=== PATIENT | female | born 1955 | race Two or more races ===

== ENCOUNTER 2021-03-06 16:03 | Inpatient (IN) | payer OTHER ==
[~2021-03-06] VITALS: Ht 157.5 cm; Wt 49.9 kg
--- NOTE | 2021-03-06 16:05 | NUR ---
at bedside for assessment
--- NOTE | 2021-03-06 16:10 | NUR ---
Art from crisis team called for patient evaluation, Art states he will come at soonest convenience
--- NOTE | 2021-03-06 16:29 | NUR ---
room given by Santos from [facility]
[2021-03-06] MEDS ORDERED: BISA-79 PO (16:37)
[2021-03-06] MEDS ORDERED: AMLO10TA59 PO (16:37)
[2021-03-06] MEDS ORDERED: HALO5SYR3 IVP (16:37)
[2021-03-06] MEDS ORDERED: HEPA500034 SQ (16:37)
[2021-03-06] MEDS ORDERED: DEXTROSE 40% PO (16:37)
[2021-03-06] MEDS ORDERED: CETI-90 PO (16:37)
[2021-03-06] MEDS ORDERED: LOSA1TAB36 PO (16:37)
[2021-03-06] MEDS ORDERED: DEXT50VI3 IV (16:37)
[2021-03-06] MEDS ORDERED: ACET-2154 PO (16:37)
[2021-03-06] MEDS ORDERED: ASPI81TA31 PO (16:37)
[2021-03-06] MEDS ORDERED: LEVO200C2 PO (16:53)
[2021-03-06] MEDS ORDERED: MONT10TA22 PO (16:53)
[2021-03-06] MEDS ORDERED: LACT1CAP61 PO (16:53)
[2021-03-06] MEDS ORDERED: METF-440 PO (16:53)
[2021-03-06] MEDS ORDERED: INSU100V42 SQ (16:53)
[2021-03-06] MEDS ORDERED: HYDR20VI6 IV (16:53)
[2021-03-06] MEDS ORDERED: NALO0.4D4 IV (16:57)
[2021-03-06] MEDS ORDERED: NITR0.4T48 SL (16:57)
[2021-03-06] MEDS ORDERED: ONDA2VIA IV (16:57)
[2021-03-06] MEDS ORDERED: SUCR1TAB PO (16:57)
[2021-03-06] MEDS ORDERED: PANT40TA49 PO (16:57)
[2021-03-06] MEDS ORDERED: QUET50TA PO (16:57)
--- NOTE | 2021-03-06 17:26 | NUR ---
Leighann obando crisis team noted at bedside for assessment
--- NOTE | 2021-03-06 18:04 | NUR ---
New hold placed by crisis member
--- NOTE | 2021-03-06 19:00 | NUR ---
Patient transferred to MHU, report given to Ema BLANDON, patient transferred via wheelchair to, MD Benavides and OBED Corley are admitting doctors
--- NOTE | 2021-03-06 19:00 | NUR ---
ADMITTED PATIENT IN MHU UNDER THE CARE OF DR. TRIPP, & DR. LÓPEZ, PATIENT ALERT X3, DISHEVELED, NO UPPER DENTURES, PATIENT DENIES/AVOIDING THE REASON WHY SHE WAS ADMITTED IN [facility], AND [facility]. PATIENT DENIES BEING OPIODS DEPENDENT, AND KEEPING GOING BACK TO WHAT THE PSYCH MD SAID, THAT SHE'S STAYING HERE ONLY FOR 3 DAYS AND SHE'S GOING BACK HOME. PATIENT COMPLAIN OF SCIATICA PAIN ON R SIDE BACK TOWARD THE BACK R THIGH, WILL MEDICATE ORDERED. PATIENT CALM, COOPERATIVE WILL CONT TO MONITOR.
[2021-03-06] MEDS ORDERED: MAG HYDROX/AL HYDROX/SIMETH 30 ML LIQUID UDC PO PRN (19:15)
[2021-03-06] MEDS ORDERED: MAGNESIUM HYDROXIDE 30 ML LIQUID UDC PO PRN (19:15)
[2021-03-06] MEDS ORDERED: BLOOD SUGAR DIAGNOSTIC 1 EACH STRIP VI ONE (20:00)
[2021-03-06 20:20] VITALS: BP 144/88
[2021-03-06] MEDS: ACETAMINOPHEN 325 MG TABLET PO PRN (21:05)
--- NOTE | 2021-03-06 22:30 | NUR ---
PLACE A CALL TO SON CARMITA CHUNG, VOICEMAIL SENIOR RISK ANALYST THE CALL BUT IT'S NAME OR WRONG NUMBER. ANGULAR JS DEVELOPER UNABLE TO CONTACT FAMILY AT THIS TIME, WILL CALL IN AM.
[2021-03-07] MEDS ORDERED: CETIRIZINE HCL 10 MG TABLET PO SCH
[2021-03-07] MEDS ORDERED: BISACODYL 5 MG TABLET.DR PO PRN
[2021-03-07] MEDS ORDERED: INSULIN ASPART 1000 UNITS/10 ML VIAL(NOVOLOG) SQ SCH
[2021-03-07] MEDS ORDERED: NITROGLYCERIN 0.4 MG/TAB BOTTLE SL PRN
--- NOTE | 2021-03-07 00:46 | NUR ---
TYLENOL 650MG ORDER 0000 NOT GIVEN, PATIENT HAD TYLENOL AT 2105 PER REQUEST FOR PAIN.
[2021-03-07] MEDS: ACETAMINOPHEN 325 MG TABLET PO SCH ×2 (05:56)
[2021-03-07 07:13] LABS: BILIRUBIN,TOTAL 0.2 mg/dL (0.2-1.0); POTASSIUM 4.4 mmol/L (3.5-5.1); TOTAL PROTEIN, SERUM 6.8 g/dL (6.4-8.2)
[2021-03-07 07:30] VITALS: BP 138/86
[2021-03-07] MEDS ORDERED: hydrALAZINE HCL 20 MG/1 ML VIAL IV PRN ×2 (07:30)
[2021-03-07] MEDS: LOSARTAN POTASSIUM 50 MG TABLET PO SCH (08:16)
[2021-03-07] MEDS: SUCRALFATE 1 G TABLET PO SCH ×4 (08:16→20:52)
[2021-03-07] MEDS: HYDROCHLOROTHIAZIDE 12.5 MG CAPSULE PO SCH (08:16)
[2021-03-07] MEDS: ACIDOPHILUS/BULGARICUS CHEW TAB PO SCH ×3 (08:17→16:48)
[2021-03-07] MEDS: METFORMIN HCL 500 MG TABLET PO SCH ×3 (08:17→17:20)
[2021-03-07] MEDS: AMLODIPINE 10 MG TABLET PO SCH (08:17)
[2021-03-07] MEDS: LEVOTHYROXINE SODIUM 200 MCG TABLET PO SCH (08:18)
[2021-03-07] MEDS: ASPIRIN 81 MG TAB.CHEW PO SCH (08:18)
[2021-03-07] MEDS: PANTOPRAZOLE SODIUM 40 MG TABLET.DR PO SCH (08:18)
--- NOTE | 2021-03-07 08:57 | NUR ---
Firearms Report: Pattern Weaver completed and submitted a [employer] firearms report for 5150 grave disability certification. A copy of report has been placed in patient chart.
[2021-03-07] MEDS ORDERED: CULTURELLE CAPSULE PO SCH (09:00)
[2021-03-07] MEDS ORDERED: Medication Not On Formulary EA (Losartan/Hydrochlorothiazide (Losartan-Hctz 50-12.5 Mg T PO SCH (09:00)
[2021-03-07] MEDS ORDERED: MONTELUKAST SODIUM 10 MG TABLET PO SCH (09:00)
--- NOTE | 2021-03-07 09:44 | NUR ---
Initial Discharge Plan: Patient lives at home with son Ten ([phone]) located at [address] [place] [address] ([phone]). Patient would want to return back home upon discharge. This SW contacted patient's son Ten ([phone]) to discuss treatment and discharge plan. This SW unable to leave a voicemail due to voicemail being full. This SW will work with the family, patient, and treatment team to help coordinate proper discharge.
--- NOTE | 2021-03-07 09:44 | NUR ---
SW Family Contact: This SW contacted patient's son Ten ([phone]) to discuss treatment and discharge plan. This check writer salesperson unable to leave a voicemail due to mailbox being full.
--- NOTE | 2021-03-07 09:45 | NUR ---
Social Work Note/Substance Abuse Intervention: Patient was provided with a brief substance abuse intervention and referred to [facility] ([phone]), [facility] ([phone]), and [facility] ([phone]) for opioid abuse.
--- NOTE | 2021-03-07 10:09 | NUR ---
SW Family Contact: This SW spoke with patient's son Ten ([phone]) and discussed treatment plan. Son stated that pt can return back home. He stated once pt is stable he will pick her up.
--- NOTE | 2021-03-07 10:48 | NUR ---
UR Note: Auth: [id number]. Branch Service Specialist: Trista Shelton ([phone]) extension:[phone], ). Approval Days: 5 with clinical review due Wednesday03/10/2021.
--- NOTE | 2021-03-07 11:28 | NUR ---
UR Note: Auth: [id number]. Scorer Helper: Trista Shelton ([phone]) extension:[phone], ). This SW faxed patient's clinicals.
[2021-03-07] MEDS ORDERED: DEXTROSE 50% 50 ML DISP.SYRIN IV PRN (13:15)
[2021-03-07] MEDS ORDERED: INSULIN REGULAR, HUMAN 300 UNIT/3 ML VIAL SQ PRN (13:15)
[2021-03-07] MEDS ORDERED: CETIRIZINE HCL 10 MG TABLET PO PRN (13:15)
[2021-03-07] MEDS: LOPERAMIDE HCL 2 MG CAPSULE PO PRN (15:16)
[2021-03-07] MEDS: ARIPIPRAZOLE 2 MG TABLET PO SCH (15:16)
[2021-03-07] MEDS: ESCITALOPRAM OXALATE 10 MG TABLET PO SCH (15:16)
[2021-03-07] MEDS: ACETAMINOPHEN 325 MG TABLET PO PRN (15:23)
[2021-03-07] MEDS: CLONAZEPAM 0.5 MG TABLET PO PRN (16:40)
[2021-03-07] MEDS: BLOOD SUGAR DIAGNOSTIC 1 EACH STRIP VI SCH ×2 (16:41→20:56)
[2021-03-07] MEDS: MONTELUKAST SODIUM 10 MG TABLET PO SCH (17:20)
[2021-03-07 17:49] VITALS: BP 145/75
[2021-03-07 20:20] VITALS: BP 143/71
[2021-03-07] MEDS: TEMAZEPAM 7.5 MG CAPSULE PO PRN (21:09)
--- NOTE | 2021-03-08 05:30 | NUR ---
PATIENT ALERT STAYED IN HER ROOM, NO COMPLAIN OF PAIN. PATIENT CALM AND COOPERATIVE WITH CARE AT THIS TIME, PATIENT TOOK SLEEPING PILL FOR INSOMNIA LAST NIGHT WITH EFFECTIVE RESULT. CONT TO MONITOR BLOOD SUGAR.
[2021-03-08] MEDS: LEVOTHYROXINE SODIUM 200 MCG TABLET PO SCH (06:00)
[2021-03-08] MEDS: SUCRALFATE 1 G TABLET PO SCH ×4 (06:00→19:49)
[2021-03-08] MEDS: BLOOD SUGAR DIAGNOSTIC 1 EACH STRIP VI SCH ×4 (06:01→19:54)
[2021-03-08] MEDS: ASPIRIN 81 MG TAB.CHEW PO SCH (08:04)
[2021-03-08] MEDS: ACIDOPHILUS/BULGARICUS CHEW TAB PO SCH ×4 (08:04→19:49)
[2021-03-08] MEDS: AMLODIPINE 10 MG TABLET PO SCH (08:05)
[2021-03-08] MEDS: ARIPIPRAZOLE 2 MG TABLET PO SCH (08:05)
[2021-03-08] MEDS: ESCITALOPRAM OXALATE 10 MG TABLET PO SCH (08:06)
[2021-03-08] MEDS: HYDROCHLOROTHIAZIDE 12.5 MG CAPSULE PO SCH (08:07)
[2021-03-08] MEDS: METFORMIN HCL 500 MG TABLET PO SCH ×3 (08:07→17:32)
[2021-03-08] MEDS: LOSARTAN POTASSIUM 50 MG TABLET PO SCH (08:07)
[2021-03-08] MEDS: PANTOPRAZOLE SODIUM 40 MG TABLET.DR PO SCH (08:07)
[2021-03-08] MEDS: LOPERAMIDE HCL 2 MG CAPSULE PO PRN (08:14)
[2021-03-08 08:22] VITALS: BP 116/79
[2021-03-08] MEDS: ACETAMINOPHEN 325 MG TABLET PO PRN ×2 (11:48→18:18)
[2021-03-08 17:11] VITALS: BP 147/74
[2021-03-08] MEDS: MONTELUKAST SODIUM 10 MG TABLET PO SCH (17:32)
[2021-03-08] MEDS: CLONAZEPAM 0.5 MG TABLET PO PRN (18:19)
[2021-03-08] MEDS: TEMAZEPAM 7.5 MG CAPSULE PO PRN (21:26)
[2021-03-08 21:53] VITALS: BP 132/66
[2021-03-09] MEDS: SUCRALFATE 1 G TABLET PO SCH ×4 (05:56→20:44)
[2021-03-09] MEDS: LEVOTHYROXINE SODIUM 200 MCG TABLET PO SCH (05:56)
[2021-03-09] MEDS: BLOOD SUGAR DIAGNOSTIC 1 EACH STRIP VI SCH ×2 (06:32→11:58)
[2021-03-09 07:30] VITALS: BP 129/81
[2021-03-09] MEDS: ACIDOPHILUS/BULGARICUS CHEW TAB PO SCH ×2 (08:26→20:44)
[2021-03-09] MEDS: HYDROCHLOROTHIAZIDE 12.5 MG CAPSULE PO SCH (08:26)
[2021-03-09] MEDS: ASPIRIN 81 MG TAB.CHEW PO SCH (08:26)
[2021-03-09] MEDS: ESCITALOPRAM OXALATE 10 MG TABLET PO SCH (08:27)
[2021-03-09] MEDS: METFORMIN HCL 500 MG TABLET PO SCH ×3 (08:27→17:43)
[2021-03-09] MEDS: LOSARTAN POTASSIUM 50 MG TABLET PO SCH (08:27)
[2021-03-09] MEDS: AMLODIPINE 10 MG TABLET PO SCH (08:27)
[2021-03-09] MEDS: PANTOPRAZOLE SODIUM 40 MG TABLET.DR PO SCH (08:28)
[2021-03-09] MEDS: ARIPIPRAZOLE 2 MG TABLET PO SCH (08:28)
[2021-03-09] MEDS: LOPERAMIDE HCL 2 MG CAPSULE PO PRN (11:58)
[2021-03-09] MEDS: ACETAMINOPHEN 325 MG TABLET PO PRN ×2 (11:59→20:45)
--- NOTE | 2021-03-09 15:00 | NUR ---
Gps/Literary Agent- Blood sugar accu -check decreased to q am. ac Called Norah Montesinos DOUBLE REAMER OPERATOR, reviewed blood sugars , order receive, patient was informed. .
[2021-03-09 16:00] VITALS: BP 111/71
[2021-03-09] MEDS: MONTELUKAST SODIUM 10 MG TABLET PO SCH (17:44)
[2021-03-09 20:00] VITALS: BP 107/64
[2021-03-09] MEDS: TEMAZEPAM 7.5 MG CAPSULE PO PRN (22:29)
[2021-03-10] MEDS: LEVOTHYROXINE SODIUM 200 MCG TABLET PO SCH (06:30)
[2021-03-10] MEDS: BLOOD SUGAR DIAGNOSTIC 1 EACH STRIP VI SCH (06:30)
[2021-03-10] MEDS: SUCRALFATE 1 G TABLET PO SCH ×4 (06:30→20:31)
[2021-03-10] MEDS: ACETAMINOPHEN 325 MG TABLET PO PRN ×2 (06:30→12:57)
--- NOTE | 2021-03-10 06:33 | NUR ---
Patient slept 7.00 hours last night. Up early this am for a shower . Patient denies SI and made a verbal contract with this technical publications writer for safety. Continuing to make frequent round and monitor the patient closely.
[2021-03-10 07:30] VITALS: BP 97/66
[2021-03-10] MEDS: ESCITALOPRAM OXALATE 10 MG TABLET PO SCH (09:00)
[2021-03-10] MEDS: AMLODIPINE 10 MG TABLET PO SCH (09:00)
[2021-03-10] MEDS: ARIPIPRAZOLE 2 MG TABLET PO SCH (09:00)
[2021-03-10] MEDS: PANTOPRAZOLE SODIUM 40 MG TABLET.DR PO SCH (09:00)
[2021-03-10] MEDS: ASPIRIN 81 MG TAB.CHEW PO SCH (09:00)
[2021-03-10] MEDS: LOSARTAN POTASSIUM 50 MG TABLET PO SCH (09:00)
[2021-03-10] MEDS: METFORMIN HCL 500 MG TABLET PO SCH ×3 (09:02→17:21)
[2021-03-10] MEDS: HYDROCHLOROTHIAZIDE 12.5 MG CAPSULE PO SCH (09:03)
[2021-03-10] MEDS: ACIDOPHILUS/BULGARICUS CHEW TAB PO SCH ×2 (09:03→20:31)
--- NOTE | 2021-03-10 09:59 | NUR ---
UR Note: Auth: [id number]. Relocation Coordinator: Trista Shelton ([phone]) extension:[phone], ). This SW faxed patient's clinicals.
--- NOTE | 2021-03-10 14:45 | NUR ---
SW Coordination of Care: This SW attempted to contact patient's primary doctor office located at [address] [place] [address]; ([phone]) for doctor Segundo office to coordinate appointment, however, no answer and this SW unable to leave a voicemail.
--- NOTE | 2021-03-10 15:07 | NUR ---
SW Coordination of Care: Patient will follow up with Dr. Raymond (Horticultural Therapist) located at [address] [place] [address]; ([phone]) on WednesdayMarch 17 10:30AM and will provide and monitor patients psychotropic medications and faxed patients clinicals ([phone]). This SW faxed it to Halley receptionist scheduler of pt's clinicals.
[2021-03-10 15:27] VITALS: BP 108/72
[2021-03-10] MEDS: GLUCERNA SHAKE VANILLA 237 ML CAN PO SCH (16:46)
--- NOTE | 2021-03-10 17:19 | NUR ---
AWAKE ALERT AND ORIENTED SHE IS COMPLIANT WITH MEDICATIONS AND CARE ENCOURAGED TO PARTICIPATE IN ACTIVITIES AND SHE STAYED MOSTLY IN HER ROOM WAS MEDICATED WITH TYLENOL FOR C/O HEADACHE EARLIER AND IT WAS EFFECTIVE.
[2021-03-10] MEDS: MONTELUKAST SODIUM 10 MG TABLET PO SCH (17:21)
[2021-03-10 20:08] VITALS: BP 104/66
[2021-03-10] MEDS: CLONAZEPAM 0.5 MG TABLET PO PRN (20:37)
--- NOTE | 2021-03-11 05:06 | NUR ---
1930 ASSUMED CARE OF PATIENT. PATIENT ALERT AND ORIENTED TIMES 4. PATIENT DENIES PAIN. VITALS SIGNS STABLE. PATIENT IN BED WITH NO SIGNS OF DISTRESS. 2099 PATIENT COOPERATIVE AND MEDICATION COMPLIANT. 2036 PATIENT GIVEN KLONOPIN PER DR ORDERS FOR ANXIETY. 2399 PATIENT GIVEN TEMAZEPAM PER DR ORDERS. [id number] PATIENT IN BED SLEEPING WITH NO SIGN OF DISTRESS OR DISCOMFORT.WILL CONTINUE TO MONITOR THROUGHOUT SHIFT.
[2021-03-11] MEDS: LEVOTHYROXINE SODIUM 200 MCG TABLET PO SCH (06:15)
[2021-03-11] MEDS: BLOOD SUGAR DIAGNOSTIC 1 EACH STRIP VI SCH (06:16)
[2021-03-11] MEDS: SUCRALFATE 1 G TABLET PO SCH ×4 (06:32→20:43)
[2021-03-11 07:30] VITALS: BP 130/87
[2021-03-11] MEDS: AMLODIPINE 10 MG TABLET PO SCH (08:34)
[2021-03-11] MEDS: ESCITALOPRAM OXALATE 10 MG TABLET PO SCH (08:34)
[2021-03-11] MEDS: ARIPIPRAZOLE 2 MG TABLET PO SCH (08:34)
[2021-03-11] MEDS: ASPIRIN 81 MG TAB.CHEW PO SCH (08:34)
[2021-03-11] MEDS: ACIDOPHILUS/BULGARICUS CHEW TAB PO SCH ×2 (08:35→20:43)
[2021-03-11] MEDS: HYDROCHLOROTHIAZIDE 12.5 MG CAPSULE PO SCH (08:36)
[2021-03-11] MEDS: METFORMIN HCL 500 MG TABLET PO SCH ×3 (08:38→16:30)
[2021-03-11] MEDS: LOSARTAN POTASSIUM 50 MG TABLET PO SCH (08:38)
[2021-03-11] MEDS: GLUCERNA SHAKE VANILLA 237 ML CAN PO SCH ×2 (08:39→16:30)
[2021-03-11] MEDS: PANTOPRAZOLE SODIUM 40 MG TABLET.DR PO SCH (08:40)
--- NOTE | 2021-03-11 09:04 | NUR ---
UR Note: Auth: [id number]. Zigzag Machine Operator: Trista Shelton ([phone]) extension:[phone], ). This SW faxed patient's clinicals and left a voicemail.
[2021-03-11] MEDS: ACETAMINOPHEN 325 MG TABLET PO PRN ×2 (13:02→23:19)
[2021-03-11 15:17] VITALS: BP 92/68
[2021-03-11] MEDS: GABAPENTIN 100 MG CAPSULE PO SCH (16:30)
[2021-03-11] MEDS: MONTELUKAST SODIUM 10 MG TABLET PO SCH (16:30)
--- NOTE | 2021-03-11 18:30 | NUR ---
Uneventful day for patient. Pt compliant with medications. No behavioral issues noted.
[2021-03-11 20:50] VITALS: BP 143/81
[2021-03-11] MEDS: TEMAZEPAM 7.5 MG CAPSULE PO PRN (20:54)
[2021-03-12] MEDS: BLOOD SUGAR DIAGNOSTIC 1 EACH STRIP VI SCH (06:07)
[2021-03-12] MEDS: LEVOTHYROXINE SODIUM 200 MCG TABLET PO SCH (06:09)
--- NOTE | 2021-03-12 06:23 | NUR ---
Patient slept approximately 7.45.C/o back pain ,offered tylenol but refused at this time. Complaint with all due meds.No behavioral issues noted.
[2021-03-12] MEDS: SUCRALFATE 1 G TABLET PO SCH ×4 (06:30→20:03)
[2021-03-12 07:30] VITALS: BP 128/81
[2021-03-12] MEDS: ASPIRIN 81 MG TAB.CHEW PO SCH (08:26)
[2021-03-12] MEDS: HYDROCHLOROTHIAZIDE 12.5 MG CAPSULE PO SCH (08:26)
[2021-03-12] MEDS: ARIPIPRAZOLE 2 MG TABLET PO SCH (08:27)
[2021-03-12] MEDS: ACIDOPHILUS/BULGARICUS CHEW TAB PO SCH ×2 (08:27→20:03)
[2021-03-12] MEDS: AMLODIPINE 10 MG TABLET PO SCH (08:28)
[2021-03-12] MEDS: LOSARTAN POTASSIUM 50 MG TABLET PO SCH (08:28)
[2021-03-12] MEDS: GABAPENTIN 100 MG CAPSULE PO SCH ×2 (08:28→16:55)
[2021-03-12] MEDS: METFORMIN HCL 500 MG TABLET PO SCH ×3 (08:28→16:56)
[2021-03-12] MEDS: ESCITALOPRAM OXALATE 10 MG TABLET PO SCH (08:28)
[2021-03-12] MEDS: GLUCERNA SHAKE VANILLA 237 ML CAN PO SCH ×2 (08:29→16:56)
[2021-03-12] MEDS: PANTOPRAZOLE SODIUM 40 MG TABLET.DR PO SCH (08:31)
--- NOTE | 2021-03-12 10:16 | NUR ---
UR Note: Auth: [id number]. Hydrator: Trista Shelton ([phone]) extension:[phone], ). This SW faxed patient's clinicals and left a voicemail.
--- NOTE | 2021-03-12 11:28 | NUR ---
Court Hearing: Patient's court hearing for 5250 was today and it was upheld for danger to self and GD.
--- NOTE | 2021-03-12 11:33 | NUR ---
UR NOTE: This notified [facility] [place] to follow up with patient's casey saw operator as she has not been returning this phone calls regarding clinicals. Per admission, [facility] [place] Frieda provided information and stated to fax patient's clinicals daily. Auth: [id number]. Gold Reclaimer: Trista Shelton ([phone]) extension:[phone], ). This SW has been faxing clinicals daily and leaving voicemail to receive a phone call to confirm if Trista Shelton has been receiving the clinicals. [facility]ton and has left a detailed voicemail on 03/12/2021 and will be contacting her packing and final assembly supervisor as well.
--- NOTE | 2021-03-12 13:35 | NUR ---
UR NOTE: Jose De Jesus from intake contacted main line for for [facility] [phone] spoke with Ruth Rudd another UM Coordinator and she checked the records that Trista Shelton has been documenting that she is receiving all the clinical that has been faxed over and there is no issue. Trista has been very busy but will reach out to . Ruth has also documented my conversation as discussed on 03/12/2021
--- NOTE | 2021-03-12 14:50 | NUR ---
SW Coordination of Care: This SW contacted patient's primary doctor office to change appointment. Patient will follow up with Dr. Raymond (Loading Supervisor) located at [address] [place] [address]; ([phone]) on WednesdayMarch 24 at 10:30AM and will provide and monitor patients psychotropic medications and faxed patients clinicals ([phone]). This SW faxed it to Halley principal archaeologist of pt's clinicals.
[2021-03-12 16:00] VITALS: BP 100/59
[2021-03-12] MEDS: MONTELUKAST SODIUM 10 MG TABLET PO SCH (16:55)
[2021-03-12 20:21] VITALS: BP 114/71
[2021-03-12] MEDS: TEMAZEPAM 7.5 MG CAPSULE PO PRN (21:30)
[2021-03-13] MEDS: BLOOD SUGAR DIAGNOSTIC 1 EACH STRIP VI SCH (06:01)
--- NOTE | 2021-03-13 06:23 | NUR ---
Slept a total of 8 hours. Pt compliant with all medications. Denies pain or SOB at this time. Denies SI or HI. Showered today. Safety and comfort provided. No other issues or concerns at this time, will endorse to day shift.
[2021-03-13] MEDS: SUCRALFATE 1 G TABLET PO SCH ×4 (06:32→20:38)
[2021-03-13] MEDS: LEVOTHYROXINE SODIUM 200 MCG TABLET PO SCH (06:32)
[2021-03-13 07:30] VITALS: BP 117/76
--- NOTE | 2021-03-13 08:24 | NUR ---
UR Note: Auth: [id number]. Willower: Trista Shelton ([phone]) extension:[phone], ). This SW faxed patient's clinicals and left a voicemail.
[2021-03-13] MEDS: PANTOPRAZOLE SODIUM 40 MG TABLET.DR PO SCH (08:41)
[2021-03-13] MEDS: ARIPIPRAZOLE 2 MG TABLET PO SCH (08:41)
[2021-03-13] MEDS: GABAPENTIN 100 MG CAPSULE PO SCH ×2 (08:41→16:25)
[2021-03-13] MEDS: HYDROCHLOROTHIAZIDE 12.5 MG CAPSULE PO SCH (08:41)
[2021-03-13] MEDS: ASPIRIN 81 MG TAB.CHEW PO SCH (08:41)
[2021-03-13] MEDS: ACIDOPHILUS/BULGARICUS CHEW TAB PO SCH ×2 (08:41→20:38)
[2021-03-13] MEDS: ESCITALOPRAM OXALATE 10 MG TABLET PO SCH (08:42)
[2021-03-13] MEDS: METFORMIN HCL 500 MG TABLET PO SCH ×3 (08:42→17:41)
[2021-03-13] MEDS: AMLODIPINE 10 MG TABLET PO SCH (08:42)
[2021-03-13] MEDS: LOSARTAN POTASSIUM 50 MG TABLET PO SCH (08:43)
[2021-03-13] MEDS: GLUCERNA SHAKE VANILLA 237 ML CAN PO SCH ×2 (09:00→16:27)
[2021-03-13] MEDS: ACETAMINOPHEN 325 MG TABLET PO PRN (14:58)
[2021-03-13 16:00] VITALS: BP 122/68
[2021-03-13] MEDS: MONTELUKAST SODIUM 10 MG TABLET PO SCH (17:43)
[2021-03-13 20:12] VITALS: BP 121/67
[2021-03-13] MEDS: CLONAZEPAM 0.5 MG TABLET PO PRN (20:38)
[2021-03-13] MEDS: TEMAZEPAM 7.5 MG CAPSULE PO PRN (21:50)
[2021-03-14] MEDS: LEVOTHYROXINE SODIUM 200 MCG TABLET PO SCH (06:09)
[2021-03-14] MEDS: BLOOD SUGAR DIAGNOSTIC 1 EACH STRIP VI SCH (06:09)
[2021-03-14] MEDS: SUCRALFATE 1 G TABLET PO SCH ×4 (06:13→20:33)
--- NOTE | 2021-03-14 06:23 | NUR ---
Patient for 8 hours; safety maintained; accucheck this AM is 101; continue to monitor; continue plan of care. Addendum: 03/14/[address] RN pt slept for 8 hours*
[2021-03-14] MEDS: HYDROCHLOROTHIAZIDE 12.5 MG CAPSULE PO SCH (08:20)
[2021-03-14] MEDS: ACIDOPHILUS/BULGARICUS CHEW TAB PO SCH ×2 (08:20→20:33)
[2021-03-14] MEDS: ASPIRIN 81 MG TAB.CHEW PO SCH (08:20)
[2021-03-14] MEDS: ARIPIPRAZOLE 2 MG TABLET PO SCH (08:21)
[2021-03-14] MEDS: GABAPENTIN 100 MG CAPSULE PO SCH ×2 (08:21→16:31)
[2021-03-14] MEDS: PANTOPRAZOLE SODIUM 40 MG TABLET.DR PO SCH (08:21)
[2021-03-14] MEDS: ESCITALOPRAM OXALATE 10 MG TABLET PO SCH (08:21)
[2021-03-14] MEDS: METFORMIN HCL 500 MG TABLET PO SCH ×3 (08:21→16:31)
[2021-03-14] MEDS: LOSARTAN POTASSIUM 50 MG TABLET PO SCH (08:22)
[2021-03-14] MEDS: AMLODIPINE 10 MG TABLET PO SCH (08:23)
[2021-03-14] MEDS: GLUCERNA SHAKE VANILLA 237 ML CAN PO SCH ×2 (08:30→16:40)
--- NOTE | 2021-03-14 08:32 | NUR ---
SW Family Contact: This SW contacted patient's son Ten ([phone]) and informed of discharge date for Wednesday03/17/21. Ten ensured he will cotton picking machine operator the patient and take her home at 7PM Wednesday evening.
[2021-03-14 08:43] VITALS: BP 101/63
--- NOTE | 2021-03-14 12:30 | NUR ---
UR Note: Auth: [id number]. Vegetable Farming Supervisor: Trista Shelton ([phone]) extension:[phone], ). This SW faxed patient's clinicals and left a voicemail.
--- NOTE | 2021-03-14 14:38 | NUR ---
Gps/Power System Operator- Stayed in bed most of the morning, encouraged participation in her group therapy. ,complained of feeling cold , offered extra blanket .Making her needs known to staff. Denies discomfort .Continued compliance with her routine meds. , pleasant affect.
[2021-03-14] MEDS: MONTELUKAST SODIUM 10 MG TABLET PO SCH (16:31)
[2021-03-14 17:07] VITALS: BP 111/75
[2021-03-14 20:14] VITALS: BP 119/70
[2021-03-14] MEDS: TEMAZEPAM 7.5 MG CAPSULE PO PRN (22:03)
[2021-03-14] MEDS: CLONAZEPAM 0.5 MG TABLET PO PRN (22:58)
--- NOTE | 2021-03-15 05:26 | NUR ---
Pt awake, quiet in her room. Klonopin PRN and Restoril given per MD order. Slept through the night. No s/s of distress noted. Compliant with meds and cooperative with care. Safety precautions in place; q15min checks done to ensure safety.
[2021-03-15] MEDS: BLOOD SUGAR DIAGNOSTIC 1 EACH STRIP VI SCH (06:10)
[2021-03-15] MEDS: SUCRALFATE 1 G TABLET PO SCH ×4 (06:32→20:44)
[2021-03-15] MEDS: LEVOTHYROXINE SODIUM 200 MCG TABLET PO SCH (06:32)
[2021-03-15 07:56] VITALS: BP 127/72
[2021-03-15] MEDS: ASPIRIN 81 MG TAB.CHEW PO SCH (08:54)
[2021-03-15] MEDS: PANTOPRAZOLE SODIUM 40 MG TABLET.DR PO SCH (08:54)
[2021-03-15] MEDS: ACIDOPHILUS/BULGARICUS CHEW TAB PO SCH ×2 (08:55→20:44)
[2021-03-15] MEDS: METFORMIN HCL 500 MG TABLET PO SCH ×3 (08:55→17:16)
[2021-03-15] MEDS: LOSARTAN POTASSIUM 50 MG TABLET PO SCH (08:55)
[2021-03-15] MEDS: HYDROCHLOROTHIAZIDE 12.5 MG CAPSULE PO SCH (08:55)
[2021-03-15] MEDS: GABAPENTIN 100 MG CAPSULE PO SCH ×2 (08:55→16:45)
[2021-03-15] MEDS: ESCITALOPRAM OXALATE 10 MG TABLET PO SCH (08:56)
[2021-03-15] MEDS: AMLODIPINE 10 MG TABLET PO SCH (08:56)
[2021-03-15] MEDS: GLUCERNA SHAKE VANILLA 237 ML CAN PO SCH ×2 (08:57→16:45)
[2021-03-15] MEDS ORDERED: ARIPIPRAZOLE 2 MG TABLET PO SCH (09:00)
[2021-03-15 16:47] VITALS: BP 108/65
[2021-03-15] MEDS: MONTELUKAST SODIUM 10 MG TABLET PO SCH (17:16)
[2021-03-15 19:51] VITALS: BP 105/60
[2021-03-15] MEDS: TEMAZEPAM 7.5 MG CAPSULE PO PRN (21:56)
[2021-03-16] MEDS: BLOOD SUGAR DIAGNOSTIC 1 EACH STRIP VI SCH (06:51)
[2021-03-16] MEDS: LEVOTHYROXINE SODIUM 200 MCG TABLET PO SCH (06:55)
[2021-03-16] MEDS: SUCRALFATE 1 G TABLET PO SCH ×4 (06:58→20:57)
[2021-03-16 07:30] VITALS: BP 119/71
[2021-03-16] MEDS: ARIPIPRAZOLE 5 MG TABLET PO SCH (08:44)
[2021-03-16] MEDS: GABAPENTIN 100 MG CAPSULE PO SCH ×2 (08:44→16:23)
[2021-03-16] MEDS: ASPIRIN 81 MG TAB.CHEW PO SCH (08:44)
[2021-03-16] MEDS: ESCITALOPRAM OXALATE 10 MG TABLET PO SCH (08:44)
[2021-03-16] MEDS: ACIDOPHILUS/BULGARICUS CHEW TAB PO SCH ×2 (08:44→20:57)
[2021-03-16] MEDS: PANTOPRAZOLE SODIUM 40 MG TABLET.DR PO SCH (08:44)
[2021-03-16] MEDS: AMLODIPINE 10 MG TABLET PO SCH (08:45)
[2021-03-16] MEDS: METFORMIN HCL 500 MG TABLET PO SCH ×3 (08:45→17:09)
[2021-03-16] MEDS: HYDROCHLOROTHIAZIDE 12.5 MG CAPSULE PO SCH (08:45)
[2021-03-16] MEDS: LOSARTAN POTASSIUM 50 MG TABLET PO SCH (08:45)
[2021-03-16] MEDS: GLUCERNA SHAKE VANILLA 237 ML CAN PO SCH ×2 (08:46→16:23)
[2021-03-16 15:17] VITALS: BP 90/61
[2021-03-16] MEDS: MONTELUKAST SODIUM 10 MG TABLET PO SCH (17:09)
[2021-03-16 20:15] VITALS: BP 113/64
[2021-03-16] MEDS: TEMAZEPAM 7.5 MG CAPSULE PO PRN (21:32)
[2021-03-16] MEDS: CLONAZEPAM 0.5 MG TABLET PO PRN (22:47)
[2021-03-17] MEDS: LEVOTHYROXINE SODIUM 200 MCG TABLET PO SCH (06:14)
[2021-03-17] MEDS: SUCRALFATE 1 G TABLET PO SCH ×2 (06:38→13:22)
--- NOTE | 2021-03-17 08:00 | NUR ---
SW Discharge Note: Patient will be discharged home [address] [facility] [place] [address]; ([phone]). Patients norm Caal ([phone]) will warp picker patient at 7PM. Upon discharge, patient appear to be calm, cooperative and happy to be going home. Patient denies suicidal and homicidal ideation. Patient denies visual/auditory hallucinations. Patient is alert and oriented x4. Patient will follow up with Dr. Raymond (Health And Safety Specialist) located at [address] [place] [address]; ([phone]) on WednesdayMarch 24 at 10:30AM and will provide and monitor patients psychotropic medications and faxed patients clinicals ([phone]). Patient was provided referrals to the following substance abuse programs for opioid abuse: [facility] Substance Abuse Self-helpline ([phone]); [facility] [address] [place] [address] ([phone]); [facility] [address] [facility] [address] ([phone]); [facility] ([phone]); [facility] ([phone]); [facility] ([phone]); [facility] ([phone]). Patient presented with euthymic mood and congruent affect.
[2021-03-17] MEDS: HYDROCHLOROTHIAZIDE 12.5 MG CAPSULE PO SCH (08:07)
[2021-03-17] MEDS: GABAPENTIN 100 MG CAPSULE PO SCH (08:07)
[2021-03-17] MEDS: ASPIRIN 81 MG TAB.CHEW PO SCH (08:07)
[2021-03-17] MEDS: ESCITALOPRAM OXALATE 10 MG TABLET PO SCH (08:07)
[2021-03-17] MEDS: METFORMIN HCL 500 MG TABLET PO SCH ×2 (08:08→13:22)
[2021-03-17] MEDS: LOSARTAN POTASSIUM 50 MG TABLET PO SCH (08:08)
[2021-03-17] MEDS: PANTOPRAZOLE SODIUM 40 MG TABLET.DR PO SCH (08:08)
[2021-03-17] MEDS: ACIDOPHILUS/BULGARICUS CHEW TAB PO SCH (08:08)
[2021-03-17] MEDS: AMLODIPINE 10 MG TABLET PO SCH (08:08)
[2021-03-17] MEDS: ARIPIPRAZOLE 5 MG TABLET PO SCH (08:09)
[2021-03-17] MEDS: GLUCERNA SHAKE VANILLA 237 ML CAN PO SCH (08:09)
[2021-03-17 08:30] VITALS: BP 131/79
--- NOTE | 2021-03-17 08:39 | NUR ---
UR Note: Auth: [id number]. Business Analyst: Trista Shelton ([phone]) extension:[phone], ). This SW faxed patient's clinicals and discharge summary.
--- NOTE | 2021-03-17 11:33 | NUR ---
SW Updated DC Note: Patient will be discharged home [address] [place] [address]; ([phone]). Patient will be provided with taxi transportation at 3PM. Patients norm Caal ([phone]) stated that he is at [facility] due to medical issues and was unable to waste picker pt. He stated that cousin Ashanti will open the door for pt upon arrival. Upon discharge, patient appear to be calm, cooperative and happy to be going home. Patient denies suicidal and homicidal ideation. Patient denies visual/auditory hallucinations. Patient is alert and oriented x4. Patient will follow up with Dr. Raymond (Meat Pickler) located at [address] [place] [address]; ([phone]) on WednesdayMarch 24 at 10:30AM and will provide and monitor patients psychotropic medications and faxed patients clinicals ([phone]). Patient was provided referrals to the following substance abuse programs for opioid abuse: [facility] Substance Abuse Self-helpline ([phone]); [facility] [address] [place] [address] ([phone]); [facility] [address] [facility] [address] ([phone]); [facility] ([phone]); [facility] ([phone]); [facility] ([phone]); [facility] ([phone]). Patient presented with euthymic mood and congruent affect.
--- NOTE | 2021-03-17 11:35 | NUR ---
SW Family Contact: This SW received a phone call from patient's son Ten ([phone]) who stated that he is at [facility] due to medical issues and was unable to black pickler pt at 7PM. He stated that cousin Ashanti will open the door for pt upon arrival. Patient will be provided with taxi transportation.
[2021-03-17 15:26] VITALS: BP 126/83
--- NOTE | 2021-03-17 15:45 | NUR ---
GPS: Nursing Notes: Discharge Notes: Patient is awake and responding to her name, cooperative with nursing care, compliant with her medications, following staff directions, A/Ox4, denies SI/HI, denies AH/VH, denies pain or discomfort at this time, denies SOB, discharge home with her son - Ten at [address] [place] [address] . transported via private vehicle - [employer], instructions and prescriptions given to patient. Patient will follow up with Dr. Raymond (Ccnp) located at [address] [place] [address]; ([phone]) on WednesdayMarch 24 at 10:30AM and will provide and monitor patients psychotropic medications. Patient was provided referrals to the following substance abuse programs for opioid abuse: [facility] Substance Abuse Self-helpline ([phone]); [facility] [address] [place] [address] ([phone]); [facility] [address] [facility] [address] ([phone]); [facility] ([phone]); [facility] ([phone]); [facility] ([phone]); [facility] ([phone]).
== END 2021-03-17 15:45 | disposition home or self-care (01) | DRG 885 ==
LOC: ER 16:06 → GPS 18:47
PROVIDERS: ADMIT Psychiatry & Neurology Psychiatry; ATTEND Nurse Practitioner Acute Care
DX: F33.3 Major depressive disorder, recurrent, severe with psychotic symptoms (principal); N17.0 Acute kidney failure with tubular necrosis; R45.851 Suicidal ideations; T40.2X2D Poisoning by other opioids, intentional self-harm, subsequent encounter; E11.9 Type 2 diabetes mellitus without complications; Z79.84 Long term (current) use of oral hypoglycemic drugs; E03.9 Hypothyroidism, unspecified; D64.9 Anemia, unspecified; G89.29 Other chronic pain; I10 Essential (primary) hypertension; Z91.5 Personal history of self-harm; Z79.891 Long term (current) use of opiate analgesic; M54.30 Sciatica, unspecified side; Z79.890 Hormone replacement therapy; Z87.891 Personal history of nicotine dependence
CPT/HCPCS: 36415; A4663; J0360; J1815